=== PATIENT | female | born 1950 | race Caucasian/White ===

== ENCOUNTER 2022-01-02 11:31 | Outpatient (CLI) | payer MEDICARE, BC ==
[2022-01-02] MEDS ORDERED: Magnevist 469MG/ML 20 ML VIAL ONE (15:29)
== END 2022-01-02 11:32 | disposition home or self-care (01) ==
LOC: CSHMRI 11:31
PROVIDERS: ATTEND Psychiatry & Neurology Neurology
DX: G25.81 Restless legs syndrome (principal); M47.812 Spondylosis without myelopathy or radiculopathy, cervical region; M47.814 Spondylosis without myelopathy or radiculopathy, thoracic region; R93.7 Abnormal findings on diagnostic imaging of other parts of musculoskeletal system
CPT/HCPCS: 70553; 72156; 72157; 82565; A9579

== ENCOUNTER 2024-05-19 18:40 | Inpatient (IN) | payer MEDICARE ==
[2024-05-19 19:48] LABS: #Basophils 0.03 10x3/uL (0.0-0.2); #Eosinophils 0.03 10x3/uL (0.0-0.5); #Monocytes 0.02 10x3/uL (0.0-1.1); #Neutrophils 4.86 10x3/uL (1.5-8.4); %Basophils 0.6 % (0.0-2.0); %Eosinophils 0.6 % (0.0-6.0); %Lymphocytes 4.6 % (18.0-47.0); %Monocytes 0.4 % (0.0-10.0); Hematocrit 41.9 % (34.9-44.5); Hemoglobin 13.7 g/dL (12.0-15.5); Mean Corpuscular HGB CONC 32.7 g/dL (32.0-36.0); Mean Corpuscular Hemoglobin 32.9 pg (27.0-33.0); Mean Corpuscular Volume 100.5 fL (81.6-98.3); Mean Platelet Volume 12.3 fL (7.4-10.4); Platelet Count 180 10x3/uL (150-450); RBC Distribution Width 15.9 % (11.5-14.5); Red Blood Cell (RBC) Count 4.17 10x6/uL (3.90-5.03); White Blood Cell (WBC) Count 5.2 10x3/uL (3.5-10.5)
[2024-05-19 19:53] LABS: Actual Bicarbonate (HCO3v) 10.1 mEq/L (22-28); Analyzer IN Cardio CS ER; Base Excess -13.8 mEq/L (-2 - +2); Calcium, Ionized (venous) 1.29 mmol/L (1.16-1.32); Chloride (VBG) 96 mmol/L (98-106); Critical Notified By: CP.PH; Hematocrit-VBG 44 % (36.0-47.0); Hemoglobin (Hb) 15.1 g/dL (11.7-16.1); Potassium (VBG) 4.79 mmol/L (3.70-5.30); Puncture Site Other Site; Sodium 142 mmol/L (133-146); pH (venous) 7.307 (7.32-7.43)
[2024-05-19 20:00] LABS: Phosphorus 4.9 mg/dL (2.3-4.7)
[2024-05-19 20:02] LABS: ALT (SGPT) 89 U/L (8-55); AST (SGOT) 59 U/L (5-34); Albumin 3.5 g/dL (3.4-4.8); Alkaline Phosphatase 600 U/L (40-110); Anion Gap 34 mmol/L (10-20); BUN (Urea Nitrogen) 35 mg/dL (9.8-20.1); Bilirubin, Total 1.2 mg/dL (0.2-1.2); Calc. Creatinine Clearance 0 mL/min (70-130); Calcium 10.4 mg/dL (7.8-10.44); Chloride 97 mmol/L (98-107); Estimated GFR 33; Globulin 3.7 g/dL (2.4-3.5); Magnesium 2.2 mg/dL (1.6-2.6); Potassium 4.9 mmol/L (3.5-5.1); Protein, Total 7.2 g/dL (5.8-8.1); Sodium 134 mmol/L (136-145)
[2024-05-19 20:09] LABS: Troponin I 0.012 ng/mL (< 0.028)
[2024-05-19 20:22] LABS: Carbon Dioxide 8 mmol/L (23-31); Glucose 535 mg/dL (83-110)
[2024-05-19] MEDS ORDERED: HYDROcodone/Acetaminophen 5/325 mg Tablet ONE (20:28)
[2024-05-19] MEDS ORDERED: Famotidine/PF 20 mg/2ml Vial ONE (20:28)
[2024-05-19] MEDS ORDERED: Morphine 4 MG/ML VIAL ONE (20:52)
[2024-05-19] MEDS ORDERED: Insulin Regular, Human 100 UNIT/ML 10 ML VIAL ONE (21:10)
[2024-05-19] MEDS ORDERED: Senokot S 8.6-50 MG TAB PO PRN (21:10)
[2024-05-19] MEDS ORDERED: Ondansetron PF 4 MG/2 ML Vial IVP PRN (21:10)
[2024-05-19] MEDS ORDERED: Dextrose 50% Abboject 50 ML SYRINGE SLOW IVP PRN (21:10)
[2024-05-19] MEDS ORDERED: Electrolyte Replacement Protocol IVPB SCH (21:10)
[2024-05-19] MEDS ORDERED: Acetaminophen 325 MG TAB PO PRN (21:10)
[2024-05-19] MEDS ORDERED: Zolpidem Tartrate 5 MG TAB PO PRN (21:16)
[2024-05-19] MEDS ORDERED: levETIRAcetam in NS 500 MG in Premix 1 BAG IVPB SCH (21:30)
[2024-05-19] MEDS ORDERED: INSULIN REGULAR IN 0.9 % NACL 100 ML ONE (21:38)
[2024-05-19 21:41] LABS: Bilirubin Neg (Negative); Blood, Urine 10 (Negative); Clarity Cloudy (Clear); Glucose, Urine (Dipstick) >=1000 mg/dL (Negative); Ketone, Urine 150 mg/dL (Negative); Leukocyte 500 (Negative); Nitrite Negative (Negative); Protein, Urine (Dipstick) 30 mg/dl (Neg-Trace); Urobilinogen Normal mg/dL (Less than 2)
[2024-05-19 21:49] LABS: CAUTI Indications for Culture Alt mental st,lethar; RBC/HPF 0-3 HPF (0-3)
[2024-05-19 21:50] LABS: Squamous Epithelial 0-3 HPF (0-3)
[2024-05-19 21:51] LABS: Bacteria/HPF 4+ HPF (None Seen)
[2024-05-19 21:52] LABS: Urine Culture Reflex No No
[2024-05-19] MEDS: Dextrose 5 %-0.45 % NaCl 1,000 ML IV SCH (23:00)
[2024-05-19] MEDS: Lactated Ringer's 1,000 ML IV SCH (23:41)
[2024-05-19] MEDS: Pramipexole Di-HCl 0.25 MG TAB PO SCH (23:57)
[2024-05-20] MEDS: cefTRIAXone\\ROCEPHIN 1 GM in Sodium Chloride 0.9% 100 ML IVPB SCH ×2 (00:11→03:57)
[2024-05-20 00:18] LABS: Phosphorus 4.7 mg/dL (2.3-4.7)
[2024-05-20] MEDS: levETIRAcetam 500 MG (5 mL) VIAL SLOW IVP SCH ×2 (00:20)
[2024-05-20 00:21] LABS: Anion Gap 30 mmol/L (10-20); BUN (Urea Nitrogen) 34 mg/dL (9.8-20.1); CK (CPK) 15 U/L (29-168); Calc. Creatinine Clearance 0 mL/min (70-130); Calcium 10.1 mg/dL (7.8-10.44); Chloride 104 mmol/L (98-107); Estimated GFR 36; Lipase 25 U/L (8-78); Potassium 4.4 mmol/L (3.5-5.1); Sodium 138 mmol/L (136-145)
[2024-05-20 00:24] LABS: Carbon Dioxide 8 mmol/L (23-31); Glucose 468 mg/dL (83-110)
[2024-05-20] MEDS: Potassium Chloride 20 MEQ TAB PO SCH ×2 (01:09→05:27)
[2024-05-20 01:58] VITALS: BMI 30.9
[2024-05-20 02:21] LABS: Bilirubin Neg (Negative); Blood, Urine Negative (Negative); Clarity Clear (Clear); Glucose, Urine (Dipstick) >=1000 mg/dL (Negative); Ketone, Urine 150 mg/dL (Negative); Leukocyte Negative (Negative); Nitrite Negative (Negative); Protein, Urine (Dipstick) Negative (Neg-Trace); Urobilinogen Normal mg/dL (Less than 2)
[2024-05-20 02:23] LABS: RBC/HPF 0-3 HPF (0-3); Renal Epithelial 0-3 HPF (None Seen); WBC/HPF 0-3 HPF (0-3)
[2024-05-20 02:24] LABS: Bacteria/HPF 4+ HPF (None Seen)
[2024-05-20 03:48] LABS: Actual Bicarbonate (HCO3v) 15.3 mEq/L (22-28); Analyzer IN Cardio CS ER; Base Excess -6.1 mEq/L (-2 - +2); Calcium, Ionized (venous) 1.14 mmol/L (1.16-1.32); Chloride (VBG) 107 mmol/L (98-106); Critical Notified By: CP.PH; Hematocrit-VBG 37 % (36.0-47.0); Hemoglobin (Hb) 12.6 g/dL (11.7-16.1); Puncture Site Other Site; Sodium 141 mmol/L (133-146); pH (venous) 7.482 (7.32-7.43)
[2024-05-20 04:17] LABS: #Basophils 0.01 10x3/uL (0.0-0.2); #Monocytes 0.41 10x3/uL (0.0-1.1); #Neutrophils 5.35 10x3/uL (1.5-8.4); %Basophils 0.2 % (0.0-2.0); %Lymphocytes 6.9 % (18.0-47.0); %Monocytes 6.6 % (0.0-10.0); %Neutrophils 85.8 % (40.0-75.0); Hematocrit 33.9 % (34.9-44.5); Mean Corpuscular HGB CONC 32.4 g/dL (32.0-36.0); Mean Corpuscular Hemoglobin 32.3 pg (27.0-33.0); Mean Corpuscular Volume 99.4 fL (81.6-98.3); Mean Platelet Volume 12.3 fL (7.4-10.4); Platelet Count 143 10x3/uL (150-450); RBC Distribution Width 15.5 % (11.5-14.5); Red Blood Cell (RBC) Count 3.41 10x6/uL (3.90-5.03); White Blood Cell (WBC) Count 6.2 10x3/uL (3.5-10.5)
[2024-05-20 04:33] LABS: ALT (SGPT) 65 U/L (8-55); AST (SGOT) 41 U/L (5-34); Albumin 2.7 g/dL (3.4-4.8); Alkaline Phosphatase 430 U/L (40-110); Anion Gap 19 mmol/L (10-20); BUN (Urea Nitrogen) 34 mg/dL (9.8-20.1); Bilirubin, Total 0.7 mg/dL (0.2-1.2); Calc. Creatinine Clearance 50 mL/min (70-130); Calcium 9.8 mg/dL (7.8-10.44); Carbon Dioxide 15 mmol/L (23-31); Chloride 107 mmol/L (98-107); Estimated GFR 43; Globulin 3.5 g/dL (2.4-3.5); Glucose 274 mg/dL (83-110); Magnesium 1.8 mg/dL (1.6-2.6); Phosphorus 2.5 mg/dL (2.3-4.7); Potassium 3.6 mmol/L (3.5-5.1); Protein, Total 6.2 g/dL (5.8-8.1); Sodium 137 mmol/L (136-145)
[2024-05-20] MEDS: Magnesium Sulfate/D5W 1 GM in Premix 1 BAG IVPB SCH (05:27)
[2024-05-20] MEDS ORDERED: Magnesium Sulfate/D5W 1 GM/100 ML BAG IVPB SCH (05:30)
[2024-05-20] MEDS: INSULIN REGULAR IN 0.9 % NACL 100 ML IVPB SCH (07:07)
[2024-05-20 08:13] LABS: Anion Gap 16 mmol/L (10-20); BUN (Urea Nitrogen) 36 mg/dL (9.8-20.1); Calc. Creatinine Clearance 53 mL/min (70-130); Calcium 9.6 mg/dL (7.8-10.44); Carbon Dioxide 18 mmol/L (23-31); Chloride 109 mmol/L (98-107); Estimated GFR 46; Glucose 196 mg/dL (83-110); Magnesium 2.4 mg/dL (1.6-2.6); Potassium 4.6 mmol/L (3.5-5.1); Sodium 138 mmol/L (136-145)
[2024-05-20] MEDS: Docusate 100 MG CAP PO SCH (10:20)
[2024-05-20] MEDS: Cholecalciferol 1,000 UNITS (25 MCG) TAB PO SCH (10:22)
[2024-05-20] MEDS: Baclofen 10 MG TAB PO SCH (10:23)
[2024-05-20] MEDS: levETIRAcetam 500 MG TAB PO SCH (10:23)
[2024-05-20] MEDS: Enoxaparin 40 MG (0.4 mL) SYRINGE SC SCH (10:24)
[2024-05-20] MEDS: Gabapentin 300 MG CAP PO SCH (10:25)
[2024-05-20] MEDS: Cyanocobalamin (Vitamin B-12) 1,000 MCG TAB PO SCH (10:25)
[2024-05-20] MEDS: Pantoprazole 40 MG VIAL IVP SCH (10:26)
[2024-05-20] MEDS: PHOS-NAK 1 PKT PACK PO SCH (10:27)
[2024-05-20] MEDS: Amantadine HCl 100 mg Capsule PO SCH (10:27)
[2024-05-20] MEDS: Allopurinol 100 MG TAB PO SCH (10:27)
[2024-05-20] MEDS: FLU (Fluad Triv) TS24-25 (65UP)/MF59C/PF 45 MCG/0.5 ML Syringe IM ONE (10:28)
[2024-05-20] MEDS: Estradiol 1 MG TAB PO SCH (10:35)
[2024-05-20] MEDS: HYDROcodone/Acetaminophen 10/325 mg Tablet PO PRN (10:45)
[2024-05-20] MEDS: Lantus 1000 UNITS/10 ML VIAL SC SCH (10:55)
[2024-05-20 12:00] LABS: Anion Gap 16 mmol/L (10-20); BUN (Urea Nitrogen) 35 mg/dL (9.8-20.1); Calc. Creatinine Clearance 55 mL/min (70-130); Calcium 9.5 mg/dL (7.8-10.44); Carbon Dioxide 17 mmol/L (23-31); Chloride 109 mmol/L (98-107); Estimated GFR 48; Glucose 300 mg/dL (83-110); Potassium 4.7 mmol/L (3.5-5.1); Sodium 137 mmol/L (136-145)
[2024-05-20] MEDS: Insulin Lispro 100 UNIT/ML 10 ML VIAL SC PRN ×2 (12:21→17:09)
[2024-05-20 12:42] LABS: Hemoglobin A1c 8.7 % (4.0-6.0)
[2024-05-20 13:00] LABS: HBsAg Index 0.27 S/CO (0-0.99); Hep A IgM AB NONREACTIVE (NonReactive); Hep B Core IgM Index 0.11 S/CO (0-0.79); Hep B Surf Ag NONREACTIVE S/CO (NonReactive); Hep C IgG Ab NONREACTIVE S/CO (NonReactive); Hepatitis B Core IgM Abs NONREACTIVE S/CO (NonReactive)
[2024-05-20] MEDS ORDERED: PRAMIPEXOLE DI HCL 0.125 MG PO SCH (21:00)
[2024-05-20] MEDS: Pramipexole Di-HCl 0.25 MG TAB PO SCH (22:23)
[2024-05-21] MEDS: Sodium Phosphate 15 MMOL in Sodium Chloride 0.9% 250 ML 250 ML IVPB SCH (10:17)
[2024-05-21] MEDS: Bisacodyl 10 MG SUPP PR PRN (10:31)
[2024-05-21 12:30] VITALS: BMI 30.9
[2024-05-22] MEDS: Cyclobenzaprine 10 MG TAB PO SCH (01:09)
[2024-05-22 09:07] VITALS: TEMP 97.9
[2024-05-22] MEDS: Pantoprazole DR 40 MG TAB PO SCH (09:14)
[2024-05-22 12:06] VITALS: BP 152/74
== END 2024-05-22 14:11 | disposition home or self-care (01) | DRG 637 ==
LOC: CSHERS 18:40 → CSHTELE 21:17
PROVIDERS: ADMIT Student in an Organized Health Care Education/Training Program; ATTEND Internal Medicine
DX: E11.10 Type 2 diabetes mellitus with ketoacidosis without coma (principal); G93.41 Metabolic encephalopathy; N17.9 Acute kidney failure, unspecified; E11.65 Type 2 diabetes mellitus with hyperglycemia; E78.5 Hyperlipidemia, unspecified; I10 Essential (primary) hypertension; G35 Multiple sclerosis; G40.909 Epilepsy, unspecified, not intractable, without status epilepticus; Z79.84 Long term (current) use of oral hypoglycemic drugs; Z79.899 Other long term (current) drug therapy
CPT/HCPCS: 36415; 36416; 51701; 70450; 71045; 76705; 80053; 80074; 81001; 82010; 82306; 82550; 82805; 83036; 83605; 83690; 83735; 83930; 84100; 84443; 84484; 85025; 87040; 87077; 87086; 87149; 90653; 93005; 93970; 96361; 96374; 96375; 96376; 97139; J0696; J1650; J1815; J1953; J2272; J2470; J3475; J3490; J7042; J7050; J7120